=== PATIENT | female | born 1960 | race Caucasian/White ===

== ENCOUNTER 2016-08-23 23:30 | Emergency (ER) | payer OTHER ==
[2016-08-23] MEDS ORDERED: Sodium Chloride 0.9% 1,000 ML IV STA (23:37)
[2016-08-23] MEDS ORDERED: DiphenhydrAMINE 50 mg/ml Inj IV STA (23:37)
--- NOTE | 2016-08-24 00:20 | ED PDOC ---
HPI: Allergic Reaction Time Seen by Provider: 08/23/16 23:33 Chief Complaint (Nursing): Allergic Reaction Chief Complaint (Provider): Allergic Reaction History Per: Patient History/Exam Limitations: no limitations Onset/Duration Of Symptoms: Hrs (x 1 hour) Current Symptoms Are (Timing): Still Present Possible Cause: Food (Watermelon) Additional Complaint(s): Tata Jerome is a 56 y/o female with a past medical history of hypothyroidism , who presents to the emergency department complaining of an acute allergic reaction with associated rash, tightness in throat, and mild shortness of breath , ongoing for 1 hour. Patient states having melon allergy, and has previously noticed mild tingling in response to watermelon. After consuming watermelon today, she noticed itchiness to palms and rash to hands. Took 1/4 pill of Benadryl without relief. Came to ED after developing tightness in throat, mild shortness of breath, and rash spreading to neck. Denies fever, nausea, vomiting , diarrhea, and cough. PMD: Balbir Lundy MD Past Medical History Reviewed: Historical Data, Nursing Documentation, Vital Signs Vital Signs: Last Vital Signs Temp 97.6 F 08/23/16 23:32 Pulse 100 H 08/23/16 23:32 Resp 24 08/23/16 23:32 BP 169/79 H 08/23/16 23:32 Pulse Ox 99 08/23/16 23:32 - Medical History PMH: Anxiety, Asthma, Atrial Fibrillation, Diabetes, Gastritis, HTN, Hypothyroidism Denies: Hepatitis, HIV, Chronic Kidney Disease, Seizures, Sexually Transmitted Disease - Surgical History Surgical History: Tonsillectomy - Family History Family History: States: Unknown Family Hx - Social History Current smoker - smoking cessation education provided: No Alcohol: None Drugs: Denies - Home Medications Home Medications: Ambulatory Orders Medication Instructions Recorded Montelukast [Singulair] 10 mg PO HS 09/15/14 Metoprolol Tartrate [Lopressor] 12.5 mg PO Q12 #0 tab 09/17/14 Aspirin [Aspirin Chewable] 81 mg PO DAILY 04/04/16 Sitagliptin Phos/Metformin HCl 1 each PO BID 04/04/16 [Janumet 50-1,000 mg Tablet] methIMAzole [Tapazole] 10 mg PO DAILY 04/04/16 Cetirizine HCl [Zyrtec] 10 mg PO QAM #10 capsule 08/24/16 Famotidine [Pepcid] 20 mg PO Q12 #14 tab 08/24/16 Methylprednisolone [Medrol Dosepak] 4 mg PO ASDIR #1 pkg 08/24/16 - Allergies Allergies/Adverse Reactions: Allergies Allergy/AdvReac Type Severity Reaction Status Date / Time Quinolones Allergy RASH Verified 10/05/15 11:51 Review of Systems ROS Statement: Except As Marked, All Systems Reviewed And Found Negative Constitutional: Negative for: Fever ENT: Positive for: Other (Throat tightness) Respiratory: Positive for: Shortness of Breath (Mild). Negative for: Cough Gastrointestinal: Negative for: Nausea, Vomiting, Diarrhea Skin: Positive for: Rash (to the palms and neck), Other (Itchiness) Physical Exam - Reviewed Nursing Documentation Reviewed: Yes Vital Signs Reviewed: Yes - Physical Exam Appears: Positive for: Non-toxic, No Acute Distress, Uncomfortable Head Exam: Positive for: ATRAUMATIC, NORMAL INSPECTION, NORMOCEPHALIC Skin: Positive for: Warm, Dry, Rash (Urticarial rash at the neck and extremities ) Eye Exam: Positive for: EOMI, Normal appearance, PERRL ENT: Positive for: Normal ENT Inspection Neck: Positive for: Normal, Painless ROM, Supple Cardiovascular/Chest: Positive for: Regular Rate, Rhythm. Negative for: Murmur Respiratory: Positive for: Normal Breath Sounds (Clear bilaterally to auscultation). Negative for: Accessory Muscle Use, Respiratory Distress Gastrointestinal/Abdominal: Positive for: Normal Exam, Bowel Sounds, Soft. Negative for: Tenderness Back: Positive for: Normal Inspection. Negative for: L CVA Tenderness, R CVA Tenderness, Vertebral Tenderness Extremity: Positive for: Normal ROM. Negative for: Pedal Edema, Deformity Neurologic/Psych: Positive for: Alert, Oriented - ECG O2 Sat by Pulse Oximetry: 99 (RA) Pulse Ox Interpretation: Normal Disposition - Clinical Impression Clinical Impression: Allergic reaction - Patient ED Disposition Is Patient to be Admitted: No Doctor Will See Patient In The: Office Counseled Patient/Family Regarding: Diagnosis, Need For Followup, Rx Given - Disposition Disposition: Routine/Home Disposition Time: 01:18 Condition: STABLE Prescriptions: Cetirizine HCl [Zyrtec] 10 mg PO QAM #10 capsule Famotidine [Pepcid] 20 mg PO Q12 #14 tab Methylprednisolone [Medrol Dosepak] 4 mg PO ASDIR #1 pkg Instructions: General Allergic Reaction (ED) Medical Decision Making ED Course and Treatment: 08/24/16 Time: 23:37 Initial Impression: Acute allergic reaction Initial Plan: --NS IV 1000 ml at 1000 mls/hr --Pepcid 40 mg IV --Methylprednisolone 125 mg IV --Benadryl 50 mg IV --Pending reevaluation Time: 01:18 --Patient reports resolution of all symptoms and is stable for discharge Clinical Impression: Acute allergic reaction Upon provider evaluation patient is feeling better, medically stable, and requires no further treatment in the ED at this time. Patient will be discharged with Rx for Zyrtec, Pepcid, and Methylprednisolone. Counseling was provided and all questions were answered regarding diagnosis and need for follow up with PMD. There is agreement to discharge plan. Return if symptoms persist or worsen. Scribe Attestation: Documented by Jayde Chaudhari, acting as a scribe for Beau Salmon MD Provider Scribe Attestation: All medical record entries made by the Scribe were at my direction and personally dictated by me. I have reviewed the chart and agree that the record accurately reflects my personal performance of the history, physical exam, medical decision making, and the department course for this patient. I have also personally directed, reviewed, and agree with the discharge instructions and disposition. 08/24/16 01:23 Re-evaluation Time: 01:18 Reassessment Condition: Improved - Critical Care Critical Care Minutes: 30 minutes - Medication Orders Current Medication Orders: Sodium Chloride (Sodium Chloride 0.9%) 1,000 mls @ 1,000 mls/hr IV .Q1H STA Stop: 08/24/16 00:36 Last Admin: 08/23/16 23:47 Dose: 1,000 mls/hr Discontinued Medications Diphenhydramine HCl (Benadryl) 50 mg IV STAT STA Stop: 08/23/16 23:38 Last Admin: 08/23/16 23:47 Dose: 50 mg Famotidine (Pepcid) 20 mg IV STAT STA Stop: 08/23/16 23:38 Famotidine (Pepcid) 40 mg IV STAT STA Stop: 08/23/16 23:38 Last Admin: 08/23/16 23:47 Dose: 40 mg Methylprednisolone (Solu-Medrol) 125 mg IVP STAT STA Stop: 08/23/16 23:38 Last Admin: 08/23/16 23:46 Dose: 125 mg
[2016-08-24 02:30] VITALS: BP 138/78; PULSE 82; RESP 20; TEMP 97.8; O2SAT 98
== END 2016-08-24 02:30 | disposition home or self-care (01) ==
LOC: H.ER 23:30
DX: T78.40XA Allergy, unspecified, initial encounter (principal); E03.9 Hypothyroidism, unspecified; E11.9 Type 2 diabetes mellitus without complications; F41.9 Anxiety disorder, unspecified; I10 Essential (primary) hypertension; I48.91 Unspecified atrial fibrillation; J45.909 Unspecified asthma, uncomplicated; Z79.82 Long term (current) use of aspirin

== ENCOUNTER 2017-02-10 12:26 | Emergency (ER) | payer OTHER ==
[2017-02-10 12:33] VITALS: BP 173/71; PULSE 75; RESP 18; TEMP 97; O2SAT 99
--- NOTE | 2017-02-10 13:15 | ED PDOC ---
Lower Extremity Pain/Injury Time Seen by Provider: 02/10/17 13:05 Chief Complaint (Nursing): Lower Extremity Problem/Injury Chief Complaint (Provider): Left leg pain History Per: Patient History/Exam Limitations: no limitations Onset/Duration Of Symptoms: Days (x10) Current Symptoms Are (Timing): Still Present Severity: Severe Additional Complaint(s): 56 year old female with a past medical history of diabetes, hypertension, and asthma, presents to the ER complaining of left leg pain associated with varicose veins, onset 10 days ago. Patient initially felt as if she had been kicked in the leg by a horse. Saw PMD and was given an appointment with a vascular specialist yesterday, which was canceled due to the weather. Patient has full ROM of the left foot and ankle. Pain worsens to touch. She also complains of cramping to both legs and groin area, which usually happens around 3AM and resolves on its own. PMD: Dr. Lundy Past Medical History Reviewed: Historical Data, Nursing Documentation, Vital Signs Vital Signs: Last Vital Signs Temp 97.0 F L 02/10/17 12:31 Pulse 75 02/10/17 12:31 Resp 18 02/10/17 12:31 BP 173/71 H 02/10/17 12:31 Pulse Ox 99 02/10/17 12:31 - Medical History PMH: Anxiety, Asthma, Atrial Fibrillation, Diabetes, Gastritis, HTN, Hypothyroidism Denies: Hepatitis, HIV, Chronic Kidney Disease, Seizures, Sexually Transmitted Disease - Surgical History Surgical History: Tonsillectomy - Family History Family History: States: Unknown Family Hx - Social History Current smoker - smoking cessation education provided: No Alcohol: Social Drugs: Denies - Immunization History Hx Influenza Vaccination: Yes - Home Medications Home Medications: Ambulatory Orders Medication Instructions Recorded Montelukast [Singulair] 10 mg PO HS 09/15/14 Metoprolol Tartrate [Lopressor] 12.5 mg PO Q12 #0 tab 09/17/14 Aspirin [Aspirin Chewable] 81 mg PO DAILY 04/04/16 Sitagliptin Phos/Metformin HCl 1 each PO BID 04/04/16 [Janumet 50-1,000 mg Tablet] methIMAzole [Tapazole] 10 mg PO DAILY 04/04/16 Cetirizine HCl [Zyrtec] 10 mg PO QAM #10 capsule 08/24/16 Famotidine [Pepcid] 20 mg PO Q12 #14 tab 08/24/16 Methylprednisolone [Medrol Dosepak] 4 mg PO ASDIR #1 pkg 08/24/16 - Allergies Allergies/Adverse Reactions: Allergies Allergy/AdvReac Type Severity Reaction Status Date / Time Quinolones Allergy RASH Verified 10/05/15 11:51 watermelon Allergy RASH Verified 02/10/17 12:30 Review of Systems ROS Statement: Except As Marked, All Systems Reviewed And Found Negative Musculoskeletal: Positive for: Leg Pain (left leg, + varicose vein) Neurological: Negative for: Weakness, Numbness Physical Exam - Reviewed Nursing Documentation Reviewed: Yes Vital Signs Reviewed: Yes - Physical Exam Appears: Positive for: Non-toxic, No Acute Distress Head Exam: Positive for: ATRAUMATIC, NORMAL INSPECTION, NORMOCEPHALIC Skin: Positive for: Normal Color, Warm, Dry Eye Exam: Positive for: EOMI, Normal appearance, PERRL Neck: Positive for: Normal, Painless ROM Cardiovascular/Chest: Positive for: Regular Rate, Rhythm. Negative for: Murmur Respiratory: Positive for: Normal Breath Sounds. Negative for: Respiratory Distress Pulses-Dorsalis Pedis (L): 2+ Pulses-Dorsalis Pedis (R): 2+ Extremity: Positive for: Normal ROM (with good dorsiflexion of left ankle), Tenderness (at varicosities), Other (Multiple varicose veins noted. Negative Edward's sign). Negative for: Pedal Edema Neurologic/Psych: Positive for: Alert, Oriented. Negative for: Motor/Sensory Deficits - Laboratory Results Result Diagrams: 02/10/17 14:20 02/10/17 14:20 - ECG O2 Sat by Pulse Oximetry: 99 (RA) Pulse Ox Interpretation: Normal - Progress ED Course And Treament: duplex wnl Medical Decision Making Medical Decision Making: Time: 13:08 Initial Plan: --BMP --Magnesium --CBC w/ differential --US Duplex lower ext vein Scribe Attestation: Documented by Jayde Chaudhari, acting as a scribe for Nilson Arciniega PA-C Provider Scribe Attestation: All medical record entries made by the Scribe were at my direction and personally dictated by me. I have reviewed the chart and agree that the record accurately reflects my personal performance of the history, physical exam, medical decision making, and the department course for this patient. I have also personally directed, reviewed, and agree with the discharge instructions and disposition. Disposition - Clinical Impression Clinical Impression: Leg pain - Patient ED Disposition Is Patient to be Admitted: No - Disposition Disposition: Routine/Home Disposition Time: 15:20 Condition: FAIR Instructions: Leg Cramps (ED), Diabetic Neuropathy (ED) Forms: [employer] (Yoruba)
--- NOTE | 2017-02-10 14:30 | US ---
PROCEDURE: Bilateral lower extremity venous duplex Doppler. HISTORY: r/o dvt COMPARISON: None available. TECHNIQUE: Bilateral common femoral, superficial femoral, popliteal and posterior tibial veins were evaluated. Flow was assessed with color Doppler, compressibility, assessment of phasic flow and augmentation response. FINDINGS: COMMON FEMORAL VEIN: Right CFV: Unremarkable. Left CFV: Unremarkable. SUPERFICIAL FEMORAL VEIN: Right SFV: Unremarkable. Left SFV: Unremarkable. POPLITEAL VEIN: Right Popliteal: Unremarkable. Left Popliteal: Unremarkable. POSTERIOR TIBIAL VEIN: Right PTV: Unremarkable. Left PTV: Unremarkable. OTHER FINDINGS: None. IMPRESSION: No evidence of deep venous thrombosis.
[2017-02-10 14:36] LABS: BASO % 0.8 % (0.0-2.0); EOS # 0.1 K/uL (0.0-0.7); EOS % 2.5 % (0.0-4.0); LYMPH # 2.4 K/uL (1.0-4.3); LYMPH % 40.8 % (20.0-40.0); MEAN CELL VOLUME 72.9 fl (81.0-99.0); MEAN CORPUSCULAR HEMOGLOBIN 21.9 pg (27.0-31.0); MEAN PLATELET VOLUME 9.5 fl (7.2-11.7); MONO # 0.4 K/uL (0.0-0.8); MONO % 6.4 % (0.0-10.0); NEUT # 2.9 K/uL (1.8-7.0); NEUT % 49.5 % (50.0-75.0); NRBC % 0.1 % (0.0-0.0); RBC 4.3 Mil/uL (3.80-5.20); RED CELL DISTRIBUTION WIDTH 18.3 % (11.5-14.5); WHITE BLOOD COUNT 5.9 K/uL (4.8-10.8)
[2017-02-10 14:39] LABS: HEMOGLOBIN 9.4 g/dL (12.0-16.0)
[2017-02-10 14:59] LABS: BLOOD UREA NITROGEN 15 mg/dl (7-17); CALCIUM 8.9 mg/dL (8.4-10.2); GFR AFRICAN-AMERICAN > 60; GFR NON-AFRICAN AMERICAN > 60; MAGNESIUM 1.9 MG/DL (1.6-2.3)
== END 2017-02-10 15:38 | disposition home or self-care (01) ==
LOC: H.ER 12:26
DX: M79.605 Pain in left leg (principal); E03.9 Hypothyroidism, unspecified; E11.9 Type 2 diabetes mellitus without complications; F41.9 Anxiety disorder, unspecified; I10 Essential (primary) hypertension; I48.91 Unspecified atrial fibrillation; J45.909 Unspecified asthma, uncomplicated; Z79.82 Long term (current) use of aspirin

== ENCOUNTER 2017-08-25 10:57 | Emergency (ER) | payer OTHER, BC ==
[2017-08-25 11:06] VITALS: BMI 29.1
--- NOTE | 2017-08-25 12:00 | ED PDOC ---
Arrival/HPI - General Chief Complaint: Chemical Exposure Time Seen by Provider: 08/25/17 11:29 Historian: Patient Past Medical History - Provider Review Nursing Documentation Reviewed: Yes - Infectious Disease Hx of Infectious Diseases: None - Cardiac Hx Atrial Fibrillation: Yes Hx Hypertension: Yes - Pulmonary Hx Asthma: Yes - Neurological Hx Seizures: No - HEENT Hx HEENT Disorder: No - Renal Hx Renal Disorder: No - Endocrine/Metabolic Hx Diabetes Mellitus Type 2: Yes Hx Hypothyroidism: Yes - Hematological/Oncological Hx Blood Disorders: No - Integumentary Hx Dermatological Disorder: No - Musculoskeletal/Rheumatological Hx Musculoskeletal Disorders: No - Gastrointestinal Hx Gastritis: Yes - Genitourinary/Gynecological Hx Sexually Transmitted Diseases: No - Psychiatric Hx Anxiety: Yes Hx Substance Use: No - Surgical History Hx Tonsillectomy: Yes - Anesthesia Hx Anesthesia: Yes Hx Anesthesia Reactions: No Hx Malignant Hyperthermia: No - Suicidal Assessment Feels Threatened In Home Enviroment: No Family/Social History - Physician Review Nursing Documentation Reviewed: Yes Family/Social History: Unknown Family HX Smoking Status: Never Smoked Hx Alcohol Use: No Hx Substance Use: No Allergies/Home Meds Allergies/Adverse Reactions: Allergies Quinolones Allergy (Verified 10/05/15 11:51) RASH watermelon Allergy (Verified 02/10/17 12:30) RASH Home Medications: Home Meds Medication Instructions Recorded Confirmed Montelukast [Singulair] 10 mg PO HS 09/15/14 04/04/16 Aspirin [Aspirin Chewable] 81 mg PO DAILY 04/04/16 04/04/16 Sitagliptin Phos/Metformin HCl 1 each PO BID 04/04/16 04/04/16 [Janumet 50-1,000 mg Tablet] methIMAzole [Tapazole] 10 mg PO DAILY 04/04/16 04/04/16 Review of Systems - Patients Enrolled in [employer] [X]: A conversation was conducted with the primary medical doctor. - Review of Systems Constitutional: Normal Eyes: Eye Pain (irritation). absent: Vision Changes, Photophobia ENT: Other (lips tingling, bad taste in mouth) Respiratory: absent: SOB Cardiovascular: Other (chest discomfort). absent: Chest Pain Gastrointestinal: Nausea. absent: Abdominal Pain, Vomiting Genitourinary Female: Normal Musculoskeletal: Normal Skin: Normal Neurological: Headache, Dizziness Endocrine: Normal Hemo/Lymphatic: Normal Psychiatric: Normal Physical Exam Vital Signs Reviewed: Yes Vital Signs Temp Pulse Resp BP Pulse Ox 08/25/17 11:44 16 08/25/17 11:37 16 08/25/17 11:04 97.6 F 69 134/63 98 Appearance: Positive for: Comfortable Pain Distress: None Mental Status: Positive for: Alert and Oriented X 3 Finger Stick Blood Glucose: 130 - Systems Exam Head: Present: Atraumatic, Normocephalic Pupils: Present: PERRL Extroacular Muscles: Present: EOMI Conjunctiva: Present: Normal Mouth: Present: Moist Mucous Membranes Neck: Present: Normal Range of Motion Respiratory/Chest: Present: Clear to Auscultation, Good Air Exchange. No: Respiratory Distress Cardiovascular: Present: Regular Rate and Rhythm. No: Murmurs Abdomen: No: Tenderness Back: Present: Normal Inspection Upper Extremity: Present: Normal Inspection Lower Extremity: Present: Normal Inspection Skin: Present: Warm, Dry. No: Rashes Psychiatric: Present: Alert, Oriented x 3 Medical Decision Making ED Course and Treatment: 08/25/17 12:02 Impression: Chemical exposure Plan: -BMP -Magnesium -Phosphorus -CBC -Glucose -1LN -Xopenex 1.26mg INH -IV insertion -Peak flow treatment -Reevaluation Scribe Attestation: Documented by Riley Fierro, acting as a scribe for Nika Maradiaga MD. Provider Scribe Attestation: All medical record entries made by the Scribe were at my direction and personally dictated by me. I have reviewed the chart and agree that the record accurately reflects my personal performance of the history, physical exam, medical decision making, and the department course for this patient. I have also personally directed, reviewed, and agree with the discharge instructions and disposition. - Lab Interpretations Lab Results: Lab Results 08/25/17 11:35: POC Glucose (mg/dL) 130 H - Medication Orders Current Medication Orders: Sodium Chloride (Sodium Chloride 0.9%) 1,000 mls @ 1,000 mls/hr IV .Q1H STA Stop: 08/25/17 13:02 Discontinued Medications Levalbuterol HCl (Xopenex) 1.26 mg INH ONCE ONE Stop: 08/25/17 12:03 Disposition/Present on Arrival - Present on Arrival History of DVT/PE: No History of Uncontrolled Diabetes: No Urinary Catheter: No - Disposition Forms: [employer] (Hungarian)
[2017-08-25] MEDS ORDERED: Levalbuterol 0.63 MG/3 ML Inhal Soln UD INH ONE (12:02)
[2017-08-25] MEDS ORDERED: Sodium Chloride 0.9% 1,000 ML IV STA (12:03)
[2017-08-25] MEDS ORDERED: Levalbuterol 0.63 MG/3 ML Inhal Soln UD ONE (12:14)
[2017-08-25 12:31] LABS: BASO # 0.1 K/uL (0.0-0.2); EOS # 0.1 K/uL (0.0-0.7); EOS % 2.1 % (0.0-4.0); HEMOGLOBIN 9.6 g/dL (12.0-16.0); LYMPH # 2.3 K/uL (1.0-4.3); LYMPH % 41.3 % (20.0-40.0); MEAN CELL VOLUME 70.6 fl (81.0-99.0); MEAN CORPUSCULAR HEMOGLOBIN 22.4 pg (27.0-31.0); MEAN CORPUSCULAR HGB CONC 31.8 g/dL (33.0-37.0); MEAN PLATELET VOLUME 8.7 fl (7.2-11.7); MONO # 0.3 K/uL (0.0-0.8); MONO % 6.3 % (0.0-10.0); NEUT # 2.7 K/uL (1.8-7.0); NEUT % 49.3 % (50.0-75.0); NRBC % 0.1 % (0.0-0.0); RBC 4.27 Mil/uL (3.80-5.20); RED CELL DISTRIBUTION WIDTH 17.6 % (11.5-14.5); WHITE BLOOD COUNT 5.5 K/uL (4.8-10.8)
--- NOTE | 2017-08-25 12:34 | ED PDOC ---
HPI: General Adult Time Seen by Provider: 08/25/17 11:29 Chief Complaint (Nursing): Chemical Exposure Chief Complaint (Provider): Chemical Exposure History Per: Patient History/Exam Limitations: no limitations Onset/Duration Of Symptoms: Hrs (x1) Current Symptoms Are (Timing): Still Present Additional Complaint(s): 57 y/o female with a PMHx of Graves disease, asthma, and diabetes (type II) presenting for evaluation of chemical exposure at 10:30am. Patient is an employee of [employer] and was cleaning out scopes in [employer] when she was exposed to fumes of "medivator solution". She states she unknowingly inhaled the fumes for approximately 30 minutes. Patient is complaining of lip tingling, a bad taste in her mouth, eye irritation, nausea, dizziness, headache, and chest discomfort. She denies any chest pain or changes in vision. Patient reports she hasn't eaten today. PMD: Dr. Lundy Past Medical History Reviewed: Historical Data, Nursing Documentation, Vital Signs Vital Signs: Last Vital Signs Temp 97.6 F 08/25/17 11:04 Pulse 69 08/25/17 11:04 Resp 16 08/25/17 11:44 BP 134/63 08/25/17 11:04 Pulse Ox 98 08/25/17 12:43 - Medical History PMH: Anxiety, Asthma, Atrial Fibrillation, Diabetes, Gastritis, HTN, Hypothyroidism Denies: Hepatitis, HIV, Chronic Kidney Disease, Seizures, Sexually Transmitted Disease - Surgical History Surgical History: Tonsillectomy - Family History Family History: States: Unknown Family Hx - Social History Current smoker - smoking cessation education provided: No Alcohol: None Drugs: Denies - Immunization History Hx Influenza Vaccination: Yes - Home Medications Home Medications: Ambulatory Orders Medication Instructions Recorded Montelukast [Singulair] 10 mg PO HS 09/15/14 Metoprolol Tartrate [Lopressor] 12.5 mg PO Q12 #0 tab 09/17/14 Aspirin [Aspirin Chewable] 81 mg PO DAILY 04/04/16 Sitagliptin Phos/Metformin HCl 1 each PO BID 04/04/16 [Janumet 50-1,000 mg Tablet] methIMAzole [Tapazole] 10 mg PO DAILY 04/04/16 Cetirizine HCl [Zyrtec] 10 mg PO QAM #10 capsule 08/24/16 Famotidine [Pepcid] 20 mg PO Q12 #14 tab 08/24/16 Methylprednisolone [Medrol Dosepak] 4 mg PO ASDIR #1 pkg 08/24/16 - Allergies Allergies/Adverse Reactions: Allergies Allergy/AdvReac Type Severity Reaction Status Date / Time Quinolones Allergy RASH Verified 10/05/15 11:51 watermelon Allergy RASH Verified 02/10/17 12:30 Review of Systems ROS Statement: Except As Marked, All Systems Reviewed And Found Negative Eyes: Positive for: Pain (irritation). Negative for: Vision Change ENT: Positive for: Other (lip tingling, bad taste in mouth) Cardiovascular: Positive for: Other (chest discomfort). Negative for: Chest Pain Respiratory: Negative for: Shortness of Breath Gastrointestinal: Positive for: Nausea. Negative for: Vomiting, Abdominal Pain Neurological: Positive for: Headache, Dizziness Physical Exam - Reviewed Nursing Documentation Reviewed: Yes Vital Signs Reviewed: Yes - Physical Exam Appears: Positive for: Non-toxic, No Acute Distress Head Exam: Positive for: ATRAUMATIC, NORMAL INSPECTION, NORMOCEPHALIC Skin: Positive for: Normal Color, Warm, Dry. Negative for: Rash Eye Exam: Positive for: EOMI, Normal appearance, PERRL ENT: Positive for: Normal ENT Inspection Neck: Positive for: Normal, Painless ROM, Supple Cardiovascular/Chest: Positive for: Regular Rate, Rhythm. Negative for: Murmur Respiratory: Positive for: Normal Breath Sounds. Negative for: Respiratory Distress Gastrointestinal/Abdominal: Positive for: Normal Exam, Soft. Negative for: Tenderness Back: Positive for: Normal Inspection. Negative for: L CVA Tenderness, R CVA Tenderness, Vertebral Tenderness Extremity: Positive for: Normal ROM. Negative for: Pedal Edema, Deformity Neurologic/Psych: Positive for: Alert, Oriented. Negative for: Motor/Sensory Deficits - Laboratory Results Result Diagrams: 08/25/17 12:20 08/25/17 12:20 - ECG O2 Sat by Pulse Oximetry: 98 (RA) Pulse Ox Interpretation: Normal Medical Decision Making Medical Decision Makin08/25/17 12:02 Impression: Chemical exposure Plan: -BMP -Magnesium -Phosphorus -CBC -Glucose -1LN -Xopenex 1.26mg INH -IV insertion -Peak flow treatment -Reevaluation Scribe Attestation: Documented by Riley Fierro, acting as a scribe for Nika Maradiaga MD. Provider Scribe Attestation: All medical record entries made by the Scribe were at my direction and personally dictated by me. I have reviewed the chart and agree that the record accurately reflects my personal performance of the history, physical exam, medical decision making, and the department course for this patient. I have also personally directed, reviewed, and agree with the discharge instructions and disposition. 1:15p - patient is feeling better. Most of her initial symptoms have resolved. Will d/c. Disposition - Clinical Impression Clinical Impression: Occupational exposure to chemicals - Patient ED Disposition Is Patient to be Admitted: No Doctor Will See Patient In The: Office Counseled Patient/Family Regarding: Diagnosis, Need For Followup - Disposition Referrals: Balbir Lundy MD [Family Provider] - Disposition: Routine/Home Disposition Time: 13:15 Condition: IMPROVED Instructions: Chemical Exposure to the Skin (DC) Forms: [employer] (Maori)
[2017-08-25 12:43] LABS: BLOOD UREA NITROGEN 13 mg/dl (7-17); CALCIUM 9.1 mg/dL (8.4-10.2); GFR AFRICAN-AMERICAN > 60; GFR NON-AFRICAN AMERICAN > 60
[2017-08-25 13:48] VITALS: BP 150/62; PULSE 92; RESP 17; TEMP 98.3; O2SAT 100
== END 2017-08-25 13:51 | disposition home or self-care (01) ==
LOC: H.ER 10:57
DX: T59.91XA Toxic effect of unspecified gases, fumes and vapors, accidental (unintentional), initial encounter (principal); E03.9 Hypothyroidism, unspecified; E05.00 Thyrotoxicosis with diffuse goiter without thyrotoxic crisis or storm; E11.9 Type 2 diabetes mellitus without complications; I10 Essential (primary) hypertension; I48.91 Unspecified atrial fibrillation; J45.909 Unspecified asthma, uncomplicated; Z77.098 Contact with and (suspected) exposure to other hazardous, chiefly nonmedicinal, chemicals
CPT/HCPCS: 80048; 82948; 83735; 84100; 85025; 94640; 96360; 99285; J7030

== ENCOUNTER 2018-04-11 08:21 | Emergency (ER) | payer OTHER ==
[2018-04-11 08:21] VITALS: BMI 29.1
--- NOTE | 2018-04-11 10:12 | ED PDOC ---
HPI: Chest Pain Time Seen by Provider: 04/11/18 08:38 Chief Complaint (Nursing): Palpitations Chief Complaint (Provider): Palpitations History Per: Patient History/Exam Limitations: no limitations Onset/Duration Of Symptoms: Days Current Symptoms Are (Timing): Still Present Additional Complaint(s): 57 year old female with a past medical history of Graves disease, hypertension, hypercholesterolemia, type 2 diabetes and atrial fibrillation who is presenting to the ED for evaluation of worsening palpitations and chest heaviness ongoing for the last few weeks. 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 She also admits that over the last few days she has been extremely hyper and has had insomnia. Patient states that at work yesterday she did her own EKG and saw PVCs. She denies any syncope but does report shortness of breath at times. Patient offers no other medical complaints at this time. PMD: none provided Past Medical History Reviewed: Historical Data, Nursing Documentation, Vital Signs Vital Signs: Last Vital Signs Temp 97.4 F L 04/11/18 08:32 Pulse 72 04/11/18 08:32 Resp 20 04/11/18 08:32 BP 170/72 H 04/11/18 08:32 Pulse Ox 98 04/11/18 08:32 - Medical History PMH: Anxiety, Asthma, Atrial Fibrillation, Diabetes, Gastritis, HTN, Hypercholesterolemia, Hypothyroidism Denies: Hepatitis, HIV, Chronic Kidney Disease, Seizures, Sexually Transmitted Disease - Surgical History Surgical History: Hernia Repair, Tonsillectomy - Family History Family History: States: Unknown Family Hx - Social History Current smoker - smoking cessation education provided: No Alcohol: None Drugs: Denies - Immunization History Hx Influenza Vaccination: Yes - Home Medications Home Medications: Ambulatory Orders Medication Instructions Recorded Montelukast [Singulair] 10 mg PO HS 09/15/14 Metoprolol Tartrate [Lopressor] 12.5 mg PO Q12 #0 tab 09/17/14 Aspirin [Aspirin Chewable] 81 mg PO DAILY 04/04/16 Sitagliptin Phos/Metformin HCl 1 each PO BID 04/04/16 [Janumet 50-1,000 mg Tablet] methIMAzole [Tapazole] 10 mg PO DAILY 04/04/16 Famotidine [Pepcid] 20 mg PO Q12 #14 tab 07/19/17 - Allergies Allergies/Adverse Reactions: Allergies Allergy/AdvReac Type Severity Reaction Status Date / Time Quinolones Allergy RASH Verified 04/11/18 08:32 watermelon Allergy RASH Verified 04/11/18 08:32 Review of Systems ROS Statement: Except As Marked, All Systems Reviewed And Found Negative Cardiovascular: Positive for: Chest Pain, Palpitations Respiratory: Positive for: Shortness of Breath Neurological: Negative for: Other (syncope ) Physical Exam - Reviewed Nursing Documentation Reviewed: Yes Vital Signs Reviewed: Yes - Physical Exam Appears: Positive for: Non-toxic, No Acute Distress Head Exam: Positive for: ATRAUMATIC, NORMAL INSPECTION, NORMOCEPHALIC Skin: Positive for: Normal Color, Warm, DRY Eye Exam: Positive for: EOMI, Normal appearance, PERRL Neck: Positive for: Normal, Painless ROM Cardiovascular/Chest: Positive for: Regular Rate, Rhythm, Other (PVCs on site monitor but no acute cardiac distress ). Negative for: Murmur Respiratory: Positive for: Normal Breath Sounds. Negative for: Respiratory Distress Gastrointestinal/Abdominal: Positive for: Normal Exam, Soft. Negative for: Tenderness Extremity: Positive for: Normal ROM. Negative for: Deformity, Swelling Neurologic/Psych: Positive for: Alert, Oriented. Negative for: Motor/Sensory Deficits - Laboratory Results Result Diagrams: 04/11/18 10:00 04/11/18 10:00 - ECG O2 Sat by Pulse Oximetry: 98 (RA) Pulse Ox Interpretation: Normal Medical Decision Making Medical Decision Making: Time: 8:55 A/P: workup for hyperthyroidism --Thyroid panel, labs with troponin --Will consult with Dr. Jimenez, endocringologist when results are back 12:20 Pt with normal labs and CXR. TSH low which is consistant with thyroid medications. T3 slightly low and T4 within normal limits. Spoke with Dr. Kim who recomends pt follow up in his office. Pt to follow up with family resource management professor regarding Graves disease and DM. Return parameters discussed. Scribe Attestation: Documented by Nani Levine, acting as a scribe for Lexis Broussard MD. Provider Scribe Attestation: All medical record entries made by the Scribe were at my direction and personally dictated by me. I have reviewed the chart and agree that the record accurately reflects my personal performance of the history, physical exam, medic al decision making, and the department course for this patient. I have also personally directed, reviewed, and agree with the discharge instructions and disposition. Disposition - Clinical Impression Clinical Impression: Palpitations - Disposition Disposition: Routine/Home Disposition Time: 12:32 Condition: IMPROVED Instructions: Palpitations (DC) Forms: [employer] (Slovenian)
[2018-04-11 10:25] LABS: BASO # 0.1 K/uL (0.0-0.2); BASO % 0.8 % (0.0-2.0); EOS # 0.1 K/uL (0.0-0.7); EOS % 1.9 % (0.0-4.0); HEMOGLOBIN 9.1 g/dL (12.0-16.0); LYMPH # 2.4 K/uL (1.0-4.3); LYMPH % 39.1 % (20.0-40.0); MEAN CELL VOLUME 69.4 fl (81.0-99.0); MEAN CORPUSCULAR HEMOGLOBIN 21.5 pg (27.0-31.0); MEAN CORPUSCULAR HGB CONC 30.9 g/dL (33.0-37.0); MEAN PLATELET VOLUME 9.8 fl (7.2-11.7); MONO # 0.5 K/uL (0.0-0.8); MONO % 7.8 % (0.0-10.0); NEUT # 3.1 K/uL (1.8-7.0); NEUT % 50.4 % (50.0-75.0); NRBC % 0.3 % (0.0-0.0); RBC 4.22 Mil/uL (3.80-5.20); RED CELL DISTRIBUTION WIDTH 19.2 % (11.5-14.5); WHITE BLOOD COUNT 6.2 K/uL (4.8-10.8)
[2018-04-11 10:37] VITALS: TEMP 97.4
[2018-04-11 10:52] LABS: BLOOD UREA NITROGEN 16 mg/dl (7-17); GFR NON-AFRICAN AMERICAN > 60
[2018-04-11 11:20] LABS: T3 0.985 nmol/L (1.49-2.60)
[2018-04-11 12:06] VITALS: RESP 18
[2018-04-11 12:46] VITALS: BP 131/80; PULSE 71; O2SAT 100
--- NOTE | 2018-04-11 15:40 | CARD ---
APPROVED REPORT Date of service: 04/11/2018 EKG Measurement Heart [id number] <Conclusion> Sinus rhythm with frequent premature ventricular complexes Septal infarct, age undetermined Abnormal ECG
== END 2018-04-11 12:33 | disposition home or self-care (01) ==
LOC: H.ER 08:21
DX: R00.2 Palpitations (principal); E03.9 Hypothyroidism, unspecified; E11.9 Type 2 diabetes mellitus without complications; E78.00 Pure hypercholesterolemia, unspecified; G47.00 Insomnia, unspecified; I10 Essential (primary) hypertension; I48.91 Unspecified atrial fibrillation; Z79.82 Long term (current) use of aspirin